=== PATIENT | female | born 1955 | race Caucasian/White ===

== ENCOUNTER 2017-04-06 23:31 | Emergency (ER) | payer OTHER ==
[~2017-04-06] VITALS: Ht 170.1 cm; Wt 83.9 kg
[~2017-04-06 23:31] MED LIST: ALPRAZOLAM2 MG PO; ATARAX,VISTARIL50 MG PO; CEPHALEXIN500 M1 PO; CHANTIX0.5 MG PO; COREG6.25 MG PO; CORTISPORIN SOL10 ML OT; FIORINAL W/CODE1 CA1 PO; FLEXERIL5 MG PO; FUROSEMIDE20 M1 PO; Fioricet 325 MG1 TAB PO; HYDROCODONE BIT1 T11 PO; HYDROXYZINE PAM50 MG PO; IBU-8800 MG PO; KEFLEX500 M1 PO; KEFLEX500 MG PO; LIPITOR20 MG PO; LISINOPRIL10 M1 PO; LISINOPRIL10 MG PO; LISINOPRIL5 MG PO; MEDROL DOSEPAK4 MG PO; METRONIDAZOLE500 M1 PO; MUPIROCIN 2% TP; NAPROXEN220 MG; NAPROXEN500 M1 PO; NEURONTIN400 MG PO; PERCOCET 325 MG1 TA2 PO; PERCOCET 325 MG1 TA3 PO; PHENERGAN25 M1 PO; PREDNISONE10 MG PO; PREDNISONE5 MG PO; RESTORIL15 MG PO; SEPTRA DS 800 M1 TAB PO; SINGULAIR10 MG PO; SPIRIVA 5 CAPS18 MCG PO; SYMBICORT1 AE1 INH; TOPICORT0.051 TP; TRAMADOL HCL50 MG PO; ULTRAM50 MG PO; VALTREX500 MG PO; VENTOLIN H0.09 MG/AC INH; VENTOLIN0.09 MG/AC INH; VICODIN 500 MG-1 TAB PO; VICODIN ES 7501 TAB PO; VISTARIL50 MG PO; VITAMIN D32000 IU PO; VOLTAREN50 M1 PO; XANAX1 MG PO; ZANTAC 150150 MG PO; ZOVIRAX800 MG PO
[2017-04-07 00:46] LABS: ALBUMIN 2.8 gm/dl (3.1-4.5); ALKALINE PHOSPHATASE 106 U/L (45-117); BILIRUBIN, DIRECT 0.1 mg/dL (0.0-0.2); BILIRUBIN, TOTAL 0.6 mg/dl (0.2-1.0); BUN 21 mg/dl (7-24); CARBON DIOXIDE 25 mmol/L (21-32); CHLORIDE 109 mmol/L (98-107); EST GLOM FILT AFRICAN AMERICAN 36 ml/min; GLUCOSE 151 mg/dL (65-99); POTASSIUM 3.9 mmol/L (3.5-5.1); SGOT/AST 16 IU/L (3-35); SGPT/ALT 11 U/L (12-78); SODIUM 143 mmol/L (136-145); TOTAL PROTEIN 5.6 gm/dL (6.4-8.2)
[2017-04-07 00:49] LABS: BASO % 0.3 % (0.0-1.0); EOS # 0.1 10*3/uL (0.0-0.4); EOS % 0.7 % (1.0-4.0); HEMATOCRIT 37.5 % (37.0-47.0); IG # 0.1 10*3/uL (0.0-0.1); LYMPH # 0.9 10*3/uL (1.3-4.4); LYMPH % 8.2 % (27.0-41.0); MEAN CORPUSCULAR HGB 29.1 pg (27.0-31.0); MEAN PLATELET VOLUME 10.9 fl (9.6-12.3); MONO # 1.2 10*3/uL (0.1-1.0); MONO % 10.1 % (3.0-9.0); NEUT # 9.3 10*3/uL (2.3-7.9); NEUT % 80.3 % (47.0-73.0); PLATELET COUNT AUTOMATED 239 10*3/uL (130-400); RED BLOOD COUNT 4.12 10*6/uL (4.10-5.10); RED CELL DISTRI WIDTH 15.3 % (0-14.5); WHITE BLOOD COUNT 11.5 10*3/uL (4.8-10.8)
[2017-04-07 00:51] LABS: TROPONIN I < 0.015 ng/ml (<0.045)
== END 2017-04-07 03:06 | disposition left against medical advice (07) ==
LOC: ED 23:31
PROVIDERS: Emergency Medicine
DX: S09.90XA Unspecified injury of head, initial encounter (principal); G93.6 Cerebral edema; I95.9 Hypotension, unspecified; Z88.6 Allergy status to analgesic agent; Z88.1 Allergy status to other antibiotic agents; Z88.8 Allergy status to other drugs, medicaments and biological substances; Z79.899 Other long term (current) drug therapy; W18.39XA Other fall on same level, initial encounter; Y93.89 Activity, other specified; Y92.89 Other specified places as the place of occurrence of the external cause; Y99.8 Other external cause status

== ENCOUNTER 2017-04-23 07:51 | Inpatient (IN) | payer OTHER ==
[~2017-04-23] VITALS: Ht 170.1 cm; Wt 83.9 kg
--- NOTE | ~2017-04-23 | PR ---
[place], [place] PROGRESS NOTE NAME: SANTIAGO GREENWOOD [facility] #: [id number] UNIT #: [id number] ROOM: 317 DOCTOR: RELL RIVERA BIRTHDATE: [birth year] DOS: 04/26/2017 CHIEF COMPLAINT: The patient was just yelling in the mcgill making bizarre statements. SUMMARY OF VISIT: I attempted to assess the patient right before I knocked on her door. Her door swung open and she started yelling about a smell of gas, what is she got to do around here to get something, just off on tangents. I could not redirect her, so I went ahead and saw other patients in my hope that she would calm down. She is not carrying all her clothes and belonging in a pillow case like she was yesterday, but she is still in a little bit brisk. MENTAL STATUS: She is alert and oriented to person, place. Extreme mood lability, grossly psychotic, delusional, short tempered, irritable, psychotic. I increased her Risperdal M-Tab yesterday and she has tolerated this so far, but we are not really seen a lot of improvements. Per Dr. Ferrell's notes if she tolerates the Risperdal M-Tab, we were going to try and load her with Invega Sustenna, so I going to go ahead and order Invega Sustenna for today. PLAN: I ordered the Invega Sustenna 234 mg IM today and then will need to schedule her second loading dose. I am going to keep the Risperdal M-Tab where they are for now. Her urine did come back with Proteus mirabilis in it. The hospitalist started her on Keflex. This may be contributing to some of her psychosis. I am not sure if it is contributing to all of it, so we will go ahead and get the Invega Sustenna and her keep the Restoril M-Tab for now. Continue to try to redirect and be aware that she is in the low mid risk at this point in time and go from there. JEN RIVERA CNP CM:PNTRANS [id number] RELL RIVERA 04/27/17 0120 interface
--- NOTE | ~2017-04-23 | WRIGHTHP ---
[place], [place] PATIENT HISTORY AND PHYSICAL EXAM NAME: SANTIAGO GREENWOOD [facility] #: [id number] UNIT #: [id number] ROOM: 317 DOCTOR: BARRON GAGE MD BIRTHDATE: [birth year] DOS: 04/24/2017 CHIEF COMPLAINT: "I'm getting the hell out of here. I don't belong here. I'm going to knock you on your ass." HISTORY OF PRESENT ILLNESS: This is a 61-year-old white female who was brought into the Emergency Room at [facility] escorted by the police. The patient apparently had been making homicidal threats towards her son and then when the police intervened, stated if you push me again, you will land the river, you will be me. The patient apparently has been acting very bizarrely ever since her on 12/31/2016. The son reports concerned that she has been taking some of her 's medicines. In fact, 4 garbage bagsful of meds were recently discarded. The patient has been acting as if she is still taking care of her and has been stating that she is hearing voices from her guiding her how to act. She openly admits to psychotic symptomatology and has not been sleeping or eating well nor has she had been taking care of her ADLs. She is admitted now to rule out organic factors and attempt to stabilize on medication. PAST MEDICAL HISTORY: Remarkable for chronic pain, chronic kidney disease, COPD, GERD, hypertension and vitamin D deficiency. MENTAL STATUS: The patient is alert and oriented to self, place, but not necessarily time. Mood is overwhelmingly depressed with anxious, irritable overtones. She is grossly psychotic and delusional. She is very terse and short and fixated on leaving the hospital. Her sense of reality is grossly distorted. Short, intermediate and long-term memory are roughly intact. DIAGNOSIS: Major depression, recurrent, severe with psychotic features. PLAN: I will go ahead and simplify her drug regimen at this point, discontinuing her Vistaril in lieu of Risperdal M-Tabs 1 mg t.i.d. with the plan to load her with Invega Sustenna. Son had reported upon admission that he is concerned that the Elavil is potentially causing some of this mental status change and it is quite possible that because of its highly anticholinergic properties, it could be worsening her confusion and psychosis, so I will now discontinue the Elavil in lieu of Remeron. We will continue to rule organic factors, continue to engage in cavanaugh milieu activities with the plan to discharge home or to the least restrictive environment when psychiatrically stable. [place], [place] PATIENT HISTORY AND PHYSICAL EXAM NAME: SANTIAGO GREENWOOD UNIT #: [id number] ROOM: 317 DOCTOR: BARRON GAGE MD BIRTHDATE: [birth year] BARRON GAGE MD CM:HISPHYS:PATIENT HISTORY AND PHYSICAL EXAMINATION 1 1 BARRON GAGE MD 04/24/1731 interface
--- NOTE | ~2017-04-23 | PR ---
[place], [place] PROGRESS NOTE [id number] UN[facility] #: [id number] ROOM: 317 DOCTOR: BARRON GAGE MD BIRTHDATE: [birth year] DOS: 04/27/2017 CHIEF COMPLAINT: "I want my purse and my phone now. I am getting out of here." SUMMARY OF THE VISIT: The patient was interviewed in her room. She was resting in bed, but as I opened the door to enter, she immediately shot up in bed and very angrily demanded I provide her with her purse and her phone now and that she was going home. She did not answer any of my questions. Instead, she was on her own agenda and continued to almost in a chant-like fashion repeat herself that she wanted her purse and her phone. After I told her that this was not going to happen, she then turned her back to me and refused to interact with me in anyway. MENTAL STATUS: She is alert and oriented. Mood does still seem to be labile and affect at times is inappropriate. She is very terse, short and irritable. She remains grossly delusional. Memory at times is impaired for short term features. PLAN: I am going to go ahead and increase her Risperdal M-Tab from 2 mg twice daily to 3 mg twice daily and order her secondary loading dose of Invega Sustenna 156 mg on May 01. We will attempt to engage her in individual and cavanaugh milieu activity with the ultimate plan to return home or the least restrictive environment when psychiatrically stable. BARRON GAGE MD CM:PNTRANS [id number] BARRON GAGE MD 04/27/17 1007 interface
--- NOTE | ~2017-04-23 | PR ---
[place], [place] PROGRESS NOTE NAME: SANTIAGO GREENWOOD [facility] #: [id number] UNIT #: [id number] ROOM: 317 DOCTOR: RELL RIVERA JEN BIRTHDATE: [birth year] DOS: 04/25/2017 CHIEF COMPLAINT: "I need outta here, my car is being towed." SUMMARY OF VISIT: The patient was assessed in the hallway, very manic, very irritable, mad. She would not remove herself from the front door, so nursing could not let me in for quite some time. Exit seeking, hiding around the corner, cognizant enough to have her clothes in the pillow case and hide in the corner to try to sneak out; so we are constantly having to keep an eye on her; very irritable. I had to be very matter of fact and direct with her even to reign her in a little bit. MENTAL STATUS: She is alert and oriented to person and place. I do not know about time. Mood irritable, agitated, grossly psychotic and delusional, short, did not like my answers would go somewhere else. I was able to calm her down when I basically told her that I was in charge this weekend, and that I was not going to be discharging her, and she demanded to know what I was doing about her car, and I said, "absolutely nothing, you are here this weekend, you might as well take a breath. I am happy to talk to you, but you need to calm down." She was able to self-redirect at that point in time when she realized I was serious and that nothing was to happen right now. PLAN: Quite manic. I am going to increase her Risperdal M-tabs from 1 mg 3 times a day to [address] Ferrell plans to load her with Invega Sustenna per his note. He stopped Elavil for fear that this may be contributing to her mental status change and started her on Remeron. She is not sleeping, very manic, exit seeking, etc. I do not see where the Invega Sustenna has been scheduled yet, so we will follow up on that, but in the meantime, I am going to try to use the Risperdal to help bring her down, and we have Paulette and Leena if we need it and we could try to engage in individual and cavanaugh milieu therapy. I think we need to be really direct with her not mean, but just very direct. She seems to be responding to that. When I made it very clear that I was in charge this weekend, and she was not going home, and there wasn't anything she could do about it, it was the first time she was quite on the unit, so we will be direct, use medications, as needed and try to get her better. [place], [place] PROGRESS NOTE NAME: KRYSTYNASANTIAGO Madai UNIT #: [id number] ROOM: 317 DOCTOR: RELL RIVERA BIRTHDATE: [birth year] JEN RIVERA CNP CM:CADEN [id number] RELL RIVERA 04/26/17 0535 interface
--- NOTE | ~2017-04-23 | CON ---
[place], [place] REPORT OF CONSULTATION NAME: SANTIAGO GREENWOOD [facility] #: [id number] UNIT #: [id number] ROOM: 317 DOCTOR: TRAVIS FARLEY ED.D (DANY) BIRTHDATE: [birth year] DOS: 04/27/2017 HISTORY OF PRESENT ILLNESS: The patient is a 61-year-old female referred by Dr. Gage for competency evaluation. At the present time, this patient is on the [facility] Unit at [facility]. She is a , her having 12/31 of this year. She does have one son. She last worked at a [employer] here in the area. Her family physician is Dr. Blandon. Her medical history is pertinent for urinary tract infection and major depressive disorder with psychotic features and PTSD. Her medications presently include Risperdal, Remeron, Thorazine, Keflex and Geodon and Invega. She had been following with Dr. Wyatt for depression and he prescribed 2 mg of Xanax 3 times per day, Restoril and Zoloft. This patient denies any suicidal ideation or plan. She was quite delusional and delirious when she came to the hospital, but as her infection has improved, her mental health status has improved. She states that when she was being treated for her urinary tract infection originally she was seeing her who is . She states she does not see him now. She has no other visual or auditory hallucinations. She is awake, alert and oriented in all three spheres. She knew she was in [facility] and she knew the date. She had no difficulty communicating whatsoever. In my opinion, this patient is competent to make informed healthcare decisions, but if she does exhibit any more delusional thoughts or delirium, she should remain in the hospital under civil commitment. Most likely her condition will improve, however. DIAGNOSES: 1. Major depressive disorder with psychotic features. 2. Posttraumatic stress disorder. 3. Delirium, not otherwise specified. RECOMMENDATIONS: In my opinion, this patient is competent. Thank you very much for this consult. TRAVIS FARLEY ED.D CM:CONSTR:REPORT OF CONSULTATION 1315 04/27/17 2226 interface BARRON GAGE MD
[2017-04-23 08:07] VITALS: BP 131/93
[2017-04-23 08:35] LABS: BASO # 0.1 10*3/uL (0.0-0.1); BASO % 0.7 % (0.0-1.0); EOS # 0.2 10*3/uL (0.0-0.4); EOS % 2.4 % (1.0-4.0); HEMATOCRIT 42.7 % (37.0-47.0); HEMOGLOBIN 13.4 g/dl (12.0-16.0); LYMPH # 1.3 10*3/uL (1.3-4.4); LYMPH % 16.4 % (27.0-41.0); MEAN CORPUSCULAR HGB 28.6 pg (27.0-31.0); MEAN CORPUSCULAR HGB CONC 31.4 g/dl (33.0-37.0); MEAN PLATELET VOLUME 10.5 fl (9.6-12.3); MONO # 0.6 10*3/uL (0.1-1.0); MONO % 7.9 % (3.0-9.0); NEUT # 5.5 10*3/uL (2.3-7.9); NEUT % 72.3 % (47.0-73.0); PLATELET COUNT AUTOMATED 310 10*3/uL (130-400); RED BLOOD COUNT 4.69 10*6/uL (4.10-5.10); RED CELL DISTRI WIDTH 14.6 % (0-14.5); WHITE BLOOD COUNT 7.6 10*3/uL (4.8-10.8)
[2017-04-23 08:50] LABS: BILIRUBIN NEGATIVE (NEGATIVE); BLOOD NEGATIVE (NEGATIVE); CLARITY CLOUDY (CLEAR); COLOR YELLOW (YELLOW); GLUCOSE NEGATIVE (NEGATIVE); KETONE NEGATIVE (NEGATIVE); LEUKO ESTERASE TRACE (NEGATIVE); NITRITE NEGATIVE (NEGATIVE); PH 5.5 (5.0-9.0); PROTEIN NEGATIVE (NEGATIVE); UROBILINOGEN 0.2 E.U./dl (0.2-1.0)
[2017-04-23 08:57] LABS: URINE AMPHETAMINES < 1000 (1000ng/ml); URINE BARBITURATES > 200 (200ng/ml); URINE COCAINE < 300 (300ng/ml)
[2017-04-23 08:59] LABS: ALBUMIN 3.6 gm/dl (3.1-4.5); ALKALINE PHOSPHATASE 134 U/L (45-117); BILIRUBIN, TOTAL 0.4 mg/dl (0.2-1.0); BUN 22 mg/dl (7-24); CARBON DIOXIDE 29 mmol/L (21-32); CHLORIDE 109 mmol/L (98-107); EST GLOM FILT AFRICAN AMERICAN 47 ml/min; GLUCOSE 110 mg/dL (65-99); POTASSIUM 4.1 mmol/L (3.5-5.1); SGOT/AST 15 IU/L (3-35); SGPT/ALT 10 U/L (12-78); SODIUM 146 mmol/L (136-145)
[2017-04-23 09:00] LABS: BACTERIA TRACE; EPITHELIAL CELLS 21-30; URINE REFLEX COMMENT YES (NO)
[2017-04-23] MEDS ORDERED: DIAZEPAM10 M1 PO (09:25)
[2017-04-23] MEDS ORDERED: AMITRIPTYLINE50 MG PO (12:56)
[2017-04-23 15:20] VITALS: BP 128/86
[2017-04-23] MEDS ORDERED: Fioricet 325 MG1 TAB PO (16:56)
[2017-04-23 20:09] VITALS: BP 138/78
[2017-04-24 07:03] VITALS: BP 129/85
[2017-04-24 20:40] VITALS: BP 103/72; BP 138/78
[2017-04-25 07:36] VITALS: BP 114/82
[2017-04-25 20:09] VITALS: BP 136/79
[2017-04-26 08:15] VITALS: BP 112/84
[2017-04-26 08:16] VITALS: BP 112/84
[2017-04-26 20:44] VITALS: BP 150/80
[2017-04-27 08:08] VITALS: BP 120/68
[2017-04-27 19:54] VITALS: BP 127/69
[2017-04-27 20:00] VITALS: BP 127/69
[2017-04-28 08:00] VITALS: BP 129/78
[2017-04-28 12:21] LABS: POTASSIUM 4.7 mmol/L (3.5-5.1)
[2017-04-28 20:18] VITALS: BP 138/80
[2017-04-29 07:35] VITALS: BP 132/81
[2017-04-29 19:57] VITALS: BP 132/63
[2017-04-30 07:53] VITALS: BP 123/86
[2017-04-30 08:43] LABS: BASO % 0.7 % (0.0-1.0); EOS # 0.1 10*3/uL (0.0-0.4); EOS % 1.5 % (1.0-4.0); HEMATOCRIT 42.2 % (37.0-47.0); HEMOGLOBIN 13.3 g/dl (12.0-16.0); LYMPH # 1.2 10*3/uL (1.3-4.4); LYMPH % 20.4 % (27.0-41.0); MEAN CORPUSCULAR HGB 28.4 pg (27.0-31.0); MEAN CORPUSCULAR HGB CONC 31.5 g/dl (33.0-37.0); MEAN PLATELET VOLUME 11.4 fl (9.6-12.3); MONO # 0.7 10*3/uL (0.1-1.0); MONO % 11.2 % (3.0-9.0); NEUT % 65.9 % (47.0-73.0); PLATELET COUNT AUTOMATED 278 10*3/uL (130-400); RED BLOOD COUNT 4.69 10*6/uL (4.10-5.10); RED CELL DISTRI WIDTH 13.9 % (0-14.5); WHITE BLOOD COUNT 6.1 10*3/uL (4.8-10.8)
[2017-04-30 08:52] LABS: ALBUMIN 3.3 gm/dl (3.1-4.5); BILIRUBIN, TOTAL 0.3 mg/dl (0.2-1.0); POTASSIUM 4.3 mmol/L (3.5-5.1); TOTAL PROTEIN 7.2 gm/dL (6.4-8.2)
[2017-04-30 12:20] LABS: BILIRUBIN 1+ (NEGATIVE); BLOOD NEGATIVE (NEGATIVE); CLARITY CLOUDY (CLEAR); COLOR YELLOW (YELLOW); GLUCOSE NEGATIVE (NEGATIVE); KETONE TRACE (NEGATIVE); LEUKO ESTERASE NEGATIVE (NEGATIVE); NITRITE NEGATIVE (NEGATIVE); PH 5.5 (5.0-9.0); PROTEIN NEGATIVE (NEGATIVE); SPECIFIC GRAVITY >= 1.030 (1.005-1.030); UROBILINOGEN 0.2 E.U./dl (0.2-1.0)
[2017-04-30 12:43] LABS: BACTERIA 2+; EPITHELIAL CELLS 15-20; URINE REFLEX COMMENT YES (NO); YEAST 1+
[2017-04-30 19:57] VITALS: BP 134/91
[2017-05-01 06:54] VITALS: BP 129/74
[2017-05-01] MEDS ORDERED: MIRTAZAPINE15 M2 PO (09:19)
[2017-05-01] MEDS ORDERED: RISPERIDONE M-TA1 MG BC (09:19)
== END 2017-05-01 12:40 | disposition home or self-care (01) | DRG 885 ==
LOC: ED 07:51 → 3N 14:44
PROVIDERS: Emergency Medicine; Hospitalist; Internal Medicine; Psychiatry & Neurology Psychiatry
DX: F33.3 Major depressive disorder, recurrent, severe with psychotic symptoms (principal); E87.0 Hyperosmolality and hypernatremia; N18.3 Chronic kidney disease, stage 3 (moderate); Z88.1 Allergy status to other antibiotic agents; Z88.5 Allergy status to narcotic agent; Z88.8 Allergy status to other drugs, medicaments and biological substances; G89.29 Other chronic pain; M54.9 Dorsalgia, unspecified; I12.9 Hypertensive chronic kidney disease with stage 1 through stage 4 chronic kidney disease, or unspecified chronic kidney disease; J44.9 Chronic obstructive pulmonary disease, unspecified; K21.9 Gastro-esophageal reflux disease without esophagitis; F41.9 Anxiety disorder, unspecified; Z98.41 Cataract extraction status, right eye; F19.90 Other psychoactive substance use, unspecified, uncomplicated; G44.229 Chronic tension-type headache, not intractable; E55.9 Vitamin D deficiency, unspecified; F43.10 Post-traumatic stress disorder, unspecified; R41.0 Disorientation, unspecified; R74.8 Abnormal levels of other serum enzymes

== ENCOUNTER 2017-08-17 10:46 | Emergency (ER) | payer SELFPAY ==
[~2017-08-17] VITALS: Ht 170.1 cm; Wt 70.3 kg
[~2017-08-17 10:46] MED LIST changes: +AMITRIPTYLINE50 MG PO; +DIAZEPAM10 M1 PO; +MIRTAZAPINE15 M2 PO; +RISPERIDONE M-TA1 MG BC
[2017-08-17 11:32] LABS: BASO % 0.3 % (0.0-1.0); EOS % 0.6 % (1.0-4.0); HEMATOCRIT 43.4 % (37.0-47.0); HEMOGLOBIN 14.2 g/dl (12.0-16.0); LYMPH # 0.7 10*3/uL (1.3-4.4); LYMPH % 9.4 % (27.0-41.0); MEAN CELL VOLUME 82.5 fl (81.0-99.0); MEAN CORPUSCULAR HGB CONC 32.7 g/dl (33.0-37.0); MEAN PLATELET VOLUME 11.8 fl (9.6-12.3); MONO # 0.5 10*3/uL (0.1-1.0); MONO % 6.5 % (3.0-9.0); NEUT # 5.7 10*3/uL (2.3-7.9); NEUT % 82.9 % (47.0-73.0); PLATELET COUNT AUTOMATED 242 10*3/uL (130-400); RED BLOOD COUNT 5.26 10*6/uL (4.10-5.10); RED CELL DISTRI WIDTH 16.3 % (0-14.5); WHITE BLOOD COUNT 6.9 10*3/uL (4.8-10.8)
[2017-08-17 11:50] LABS: ALBUMIN 2.6 gm/dl (3.1-4.5); CREATININE 1.18 mg/dL (0.55-1.02); POTASSIUM 2.9 mmol/L (3.5-5.1); TOTAL PROTEIN 6.4 gm/dL (6.4-8.2)
[2017-08-17 15:50] LABS: LIPASE 111 U/L (73-393); TROPONIN I < 0.015 ng/ml (<0.045)
[2017-08-17 15:54] LABS: ACT PARTIAL THROMBO TIME 24.3 SECONDS (20.8-31.5); INTERNATIONAL NORM RATIO 1.1 (2.0-3.5)
[2017-08-17 15:55] LABS: ETHYL ALCOHOL < 3.0 mg/dl (<3)
[2017-08-17 17:35] LABS: BILIRUBIN 1+ (NEGATIVE); BLOOD 1+ (NEGATIVE); CLARITY SL CLOUDY (CLEAR); COLOR YELLOW (YELLOW); GLUCOSE NEGATIVE (NEGATIVE); KETONE NEGATIVE (NEGATIVE); LEUKO ESTERASE NEGATIVE (NEGATIVE); NITRITE NEGATIVE (NEGATIVE); PH 5.5 (5.0-9.0); UROBILINOGEN 0.2 E.U./dl (0.2-1.0)
[2017-08-17 17:44] LABS: BACTERIA 2+; MUCOUS TRACE
[2017-08-17 17:49] LABS: URINE AMPHETAMINES < 1000 (1000ng/ml); URINE BARBITURATES < 200 (200ng/ml); URINE BENZODIAZEPINES < 200 (200ng/ml); URINE CANNABINOIDS (THC) < 50 (50ng/ml); URINE COCAINE < 300 (300ng/ml); URINE METHADONE < 300 (300ng/ml); URINE OPIATES < 300 (300ng/ml)
[2017-08-17 17:50] LABS: URINE PHENCYCLIDINE < 25 (25ng/ml)
== END 2017-08-17 20:25 | disposition short-term general hospital (02) ==
LOC: ED 10:46
PROVIDERS: Physician Assistant
DX: D49.6 Neoplasm of unspecified behavior of brain (principal); Z98.41 Cataract extraction status, right eye; Z88.6 Allergy status to analgesic agent; Z88.1 Allergy status to other antibiotic agents; Z88.5 Allergy status to narcotic agent; Z88.8 Allergy status to other drugs, medicaments and biological substances